=== PATIENT | male | born 1975 | race Hispanic/Latino ===

== ENCOUNTER 2016-11-20 16:35 | Emergency (ER) | payer OTHER ==
[2016-11-20 16:39] VITALS: BP 125/90; PULSE 80; RESP 18; TEMP 97.8; O2SAT 98
--- NOTE | 2016-11-20 17:20 | ED PDOC ---
HPI: General Adult Time Seen by Provider: 11/20/16 16:42 Chief Complaint (Nursing): Trauma Chief Complaint (Provider): fall History Per: Patient History/Exam Limitations: no limitations Additional Complaint(s): 41yo M in ED for eval of fall injury while attempting to put blinds while standing on stool, which gave out under him and he fell onto back, twisting his left ankle./foot. now with pain to foot and ankle and very minimal pain to back. no head injury. admits to swelling to left foot/ankle. negative for: abd pain, head injury LOC, dizziness incontinence of B/urine numbness/weakness in LE. Past Medical History Reviewed: Historical Data, Nursing Documentation, Vital Signs Vital Signs: Last Vital Signs Temp 97.8 F 11/20/16 16:37 Pulse 80 11/20/16 16:37 Resp 18 11/20/16 16:37 BP 125/90 11/20/16 16:37 Pulse Ox 98 11/20/16 17:43 - Medical History PMH: Anxiety, Depression Denies: Chronic Kidney Disease - Family History Family History: States: No Known Family Hx - Immunization History Hx Tetanus Toxoid Vaccination: No - Home Medications Home Medications: Ambulatory Orders Medication Instructions Recorded Acetaminophen [Tylenol 325mg tab] 325 mg PO Q6 #30 tab 11/20/16 - Allergies Allergies/Adverse Reactions: Allergies Allergy/AdvReac Type Severity Reaction Status Date / Time No Known Allergies Allergy Verified 11/20/16 16:37 Review of Systems ROS Statement: Except As Marked, All Systems Reviewed And Found Negative Musculoskeletal: Positive for: Foot Pain. Negative for: Back Pain Physical Exam - Reviewed Nursing Documentation Reviewed: Yes Vital Signs Reviewed: Yes - Physical Exam Appears: Positive for: Well, Non-toxic, No Acute Distress Skin: Positive for: Normal Color, Warm, DRY Cardiovascular/Chest: Positive for: Regular Rate, Rhythm Respiratory: Positive for: CNT, Normal Breath Sounds Back: Positive for: Normal Inspection Extremity: Positive for: Other (left foot: neruovasc intact, swelling noted to lateral dorsum foot skin intact. dec ROM to foot. ) Neurologic/Psych: Positive for: Alert, Oriented - ECG O2 Sat by Pulse Oximetry: 98 - Radiology X-Ray: Interpreted by Me (fx to base of 5th MTP left foot. ) - Progress ED Course And Treament: Orders Category Date Time Status Ibuprofen [Motrin Tab] Med 11/20/16 16:42 Discontinued 600 mg PO STAT STA ANKLE LEFT 3 VIEWS ROUTINE [RAD] Stat Radiology 11/20/16 16:42 Taken FOOT LEFT 3 VIEWS ROUTINE [RAD] Stat Radiology 11/20/16 17:13 Ordered 17:36 podiatry consulted-for fx. * Active Medications Discontinued Medications Ibuprofen (Motrin Tab) 600 mg PO STAT STA Stop: 11/20/16 16:43 Last Admin: 11/20/16 16:45 Dose: 600 mg MAR Pain Assessment Document 11/20/16 16:45 RUPERT (Rec: 11/20/16 16:45 RUPERT [id number]) Pain Reassessment Is this a pain reassessment? No Sleep Is patient sleeping during reassessment? No Presence of Pain Presence of Pain Yes Pain Scale Used Pain Scale Used Numeric Location Left, Right or Bilateral Left Pain Location Body Site Ankle Description Description Constant Intensity of Pain at present 8 Allergies No Known Allergies Allergy (Verified 11/20/16 16:37) Medical Decision Making Medical Decision Making: pt will f.u with MD elissa placed in post. splint crutches and tylenol for pain non wght bearing. Disposition - Clinical Impression Clinical Impression: Foot fracture, left - Patient ED Disposition Is Patient to be Admitted: No Counseled Patient/Family Regarding: Studies Performed, Diagnosis, Need For Followup, Rx Given - Disposition Referrals: Ashu Arceo DPM [[facility]] - Disposition: Routine/Home Disposition Time: 18:18 Condition: STABLE Prescriptions: Acetaminophen [Tylenol 325mg tab] 325 mg PO Q6 #30 tab Instructions: Toe Fracture (ED) Forms: [facility] ED School/Work Excuse
--- NOTE | 2016-11-20 18:18 | RAD ---
PROCEDURE: Left Ankle Radiographs. HISTORY: ankle pain COMPARISON: None FINDINGS: BONES: A chip or avulsion fracture versus periostitis is felt to be related to the dorsal surface of the neck of the talus. Clinically correlate. There is a comminuted, articular fracture of the base of the 5th metatarsal bone. JOINTS: No osteoarthritis. Ankle mortise maintained. Talar dome intact SOFT TISSUES: Normal. OTHER FINDINGS: None. IMPRESSION: Comminuted fracture of the base of 5th metatarsal bone, articular involvement. Chip/avulsion fracture versus periostitis at the neck of the talus dorsally. Clinically correlate further.
--- NOTE | 2016-11-20 18:21 | RAD ---
PROCEDURE: Left Foot Radiographs. HISTORY: injury COMPARISON: None. FINDINGS: BONES: Chip or avulsion fracture of the dorsal surface of the neck of the talus is questioned versus heterotopic calcification. Clinically correlate further. There is a comminuted, articular fracture of the base of the 5th metatarsal bone. JOINTS: Normal. SOFT TISSUES: Normal. OTHER FINDINGS: None. IMPRESSION: Comminuted articular fracture base 5th metatarsal bone left foot. Heterotopic calcification difficult to differentiate from periostitis or even chip or avulsion fracture of the dorsal surface of the neck of the talus. Clinically correlate further.
--- NOTE | 2016-11-20 18:38 | CP.PCM.CON ---
History of Present Illness - History of Present Illness History of Present Illness: 41 year old male presents to ED with his complaining of painful left foot. Patient states that this afternoon he was hanging curtains when he lost his balance and fell about three feet to the ground. Upon hitting the ground he felt immediate pain to his left lateral foot and was unable to weight bear. His foot has become more swollen since that time. He has been icing it. Patient denies any further pedal complaints at this time. Patient denies N/V/F/C/CP/SOB Review of Systems - Review of Systems Review of Systems: ROS unremarkable outside of HPI Past Patient History - Past Social History Smoking Status: Never Smoked - CARDIAC Hx Cardiac Disorders: No - PULMONARY Hx Respiratory Disorders: No - NEUROLOGICAL Hx Neurological Disorder: No - HEENT Hx HEENT Problems: No - RENAL Hx Chronic Kidney Disease: No - PSYCHIATRIC Hx Anxiety: Yes Hx Depression: Yes - SURGICAL HISTORY Hx Surgeries: No Meds Home Medications: Home Medication List Medication Instructions Recorded Confirmed Type Acetaminophen [Tylenol 325mg tab] 325 mg PO Q6 #30 tab 11/20/16 Rx Allergies/Adverse Reactions: Allergies Allergy/AdvReac Type Severity Reaction Status Date / Time No Known Allergies Allergy Verified 11/20/16 16:37 Physical Exam - Constitutional Appears: Well, Non-toxic, No Acute Distress - Extremities Exam Additional comments: LLE focused exam Vasc: DP/PT pulses fully palpable 2/4 b/l. Skin temperature warm to warm from proximal to distal. CFT < 3 seconds to all digits. Minimal edema noted to lateral left foot. Neuro: Epicritic and protective sensation grossly intact b/l Derm: No open lesions, wounds, maceration, xerosis, abnormal pigmentation or abnormal growth noted at this time MSK: POP noted to left fifth metatarsal base - Neurological Exam Neurological exam: Alert, Oriented x3 - Psychiatric Exam Psychiatric exam: Normal Affect, Normal Mood Results - Vital Signs Recent Vital Signs: Last Vital Signs Temp 97.8 F 11/20/16 16:37 Pulse 80 11/20/16 16:37 Resp 18 11/20/16 16:37 BP 125/90 11/20/16 16:37 Pulse Ox 98 11/20/16 18:21 Assessment & Plan - Assessment and Plan (Free Text) Assessment: 41 year old male presents to ED with nondisplaced fifth metatarsal base fracture of left foot Plan: Patient seen and evaluated in ED Labs, charts and vitals reviewed Plan discussed with attending Dr. Arceo Patient's left leg dressed in posterior splint Left foot and ankle xray positive for left fifth metatarsal base fracture, nondisplaced Dispensed crutches Advised to take either Tylenol or Ibuprofen as needed and remain NWB to left foot RICE therapy recommended Patient to follow up with Dr. Arceo in his private office - Date & Time Date: 11/20/16 Time: 18:43
== END 2016-11-20 18:40 | disposition home or self-care (01) ==
LOC: H.ER 16:35
DX: S92.355A Nondisplaced fracture of fifth metatarsal bone, left foot, initial encounter for closed fracture (principal); W17.89XA Other fall from one level to another, initial encounter